=== PATIENT | male | born 1950 | race Caucasian/White ===

== ENCOUNTER 2016-07-16 09:41 | Inpatient (IN) | payer BC, OTHER ==
--- NOTE | ~2016-07-16 | DS ---
Discharge Summary [facility] [address] [place]. [address] NAME: HEAVENLY IGLESIAS : 54 STATUS : ADM Hilda PAT#: [id number] AGE: 66 ADM/REG DATE : 07/16/16 MR#: [id number] REPORT SERV DATE: 07/18/16 DICTATED BY: LILIAN JIN DATE: 07/17/16 REPORT STATUS : Draft TRANSCRIBED BY: MODL DATE: 07/17/16 ADMISSION DATE: 07/16/2016 DISCHARGE DATE: 07/17/2016 Date of admission was initially to [facility] on 07/15/2016, then was transferred here yesterday for heart cath. DISCHARGE DIAGNOSES: Epigastric abdominal pain, nausea intermittent, likely atypical chest pain, hypertroponinemia. RISK FACTORS: Hypertension, known history of subarachnoid hemorrhage due to hypertensive emergency, known history of epilepsy as a result, depression, comorbid generalized anxiety disorder, obesity, CAD, hyperlipidemia. HOSPITAL COURSE: The patient is a 66-year-old unfortunate male, came in with nausea, epigastric discomfort, hypertroponinemia. Lipase mildly elevated 362. Troponin 0.15. Cardiology was consulted given risk factors. Dr. Livingston sent him here to [facility]. The patient had a heart cath. Did not have any flow-limiting coronary artery disease, however, seen to have EF of 20%. Findings consistent with takotsubo's stress cardiomyopathy. As a result of recently losing his less than one month ago, the patient deemed to have acute stress disorder. As a result, Psychiatry saw the patient this morning and acute stress disorder following of . Continue therapy with Dr. Pierre. Consider joining a grief support group through [employer] . Psychiatry signed off. The patient wants to be discharged very anxiously. We will get an echo for further support. Stress cardiomyopathy. DISCHARGE MEDICATIONS: Aspirin 81 p.o. daily, Lipitor 40 p.o. daily, carvedilol 12.5 p.o. b.i.d., Plavix 75 p.o. daily, lisinopril 20 p.o. daily, Dilantin 300 p.o. b.i.d., Zoloft 200 p.o. at bedtime, Aldactone 25 p.o. at bedtime. I will also give Zofran 4 mg p.o. every six hours p.r.n. nausea. I had a CT abdomen and pelvis done regarding his abdominal pain. No intra-abdominal anatomic pathology to correlate with epigastric pain more likely due to his hypertroponinemia, type 2 demand ischemia, . All questions were answered. It took well over 30 minutes to do. DISCHARGE DIAGNOSES: See prior discharge summary. CONSULTS: Interventional Cardiology and Cardiology. PROCEDURES: Heart catheterization. WST/MODL Discharge Summary [address] [place]. [address] NAME: HEAVENLY IGLESIAS : 54 STATUS : ADM Hilda PAT#: [id number] AGE: 66 ADM/REG DATE : 07/16/16 MR#: [id number] REPORT SERV DATE: 07/18/16 DICTATED BY: LILIAN JIN DATE: 07/17/16 REPORT STATUS : Draft TRANSCRIBED BY: AZAEL DATE: 07/17/16 Lilian Jin DO / [id number] CC: Gordo Carter M.D.
--- NOTE | ~2016-07-16 | DS ---
Discharge Summary [facility] [address] [place]. [address] NAME: HEAVENLY IGLESIAS : 54 STATUS : DIS IN PAT#: [id number] AGE: 66 ADM/REG DATE : 07/16/16 MR#: [id number] REPORT SERV DATE: 07/19/16 DICTATED BY: LILIAN JIN DATE: 07/18/16 REPORT STATUS : Draft TRANSCRIBED BY: MODL DATE: 07/18/16 ADMISSION DATE: 07/16/2016 DISCHARGE DATE: 07/18/2016 ADDENDUM: To my discharge summary from yesterday. The patient unfortunately was found by echo prior to discharge to have a large 3.2 x 2 cm apical thrombus. The patient was very anxious to want to be discharged prior to echo. I convinced the patient to get an echo and as a result, noted EF of 25%. Dilated LV global hypocontractility, moderate diastolic dysfunction, mildly enlarged right ventricle, moderately decreased systolic function, mild pulmonary hypertension, mild MR, mild-to- moderate TR. Made decision to anticoagulate; however, the patient likely needs VTE treatment dosing of Eliquis 10 mg p.o. b.i.d. for seven days, then 5 mg p.o. b.i.d. thereafter. Hemoglobin stable, 14 at this time. As a result, he does not have any flow- limiting coronary artery disease, does not need Plavix. As a result, we will just use discharge meds as update of Eliquis 10 mg p.o. b.i.d. for seven days, then 5 mg p.o. b.i.d.; aspirin 81 p.o. daily; as well as Lipitor 40 p.o. daily; as well as carvedilol 12.5 p.o. b.i.d.; as well as lisinopril 20 p.o. daily; as well as Dilantin 300 p.o. b.i.d.; Zoloft 200 p.o. daily; Aldactone 25 p.o. daily; Ativan 0.5 p.o. b.i.d. p.r.n. Consults and record of discharge summary, see prior discharge summary done just yesterday. All questions were answered. Took over 30 minutes to do. WST/AZAEL Lilian Jin DO / [id number] CC: DO Gordo Mtz M.D.
--- NOTE | ~2016-07-16 | DS ---
Discharge Summary [facility] [id number] [place]. [address] NAME: HEAVENLY IGLESIAS : 54 STATUS : DIS IN PAT#: [id number] AGE: 66 ADM/REG DATE : 07/16/16 MR#: [id number] REPORT SERV DATE: 07/19/16 DICTATED BY: LILIAN JIN DATE: 07/18/16 REPORT STATUS : Draft TRANSCRIBED BY: MODL DATE: 07/18/16 ADMISSION DATE: 07/16/2016 DISCHARGE DATE: 07/18/2016 ADDENDUM: The patient does not want Lovenox fpc. Is interested in Coumadin at this time. As a result, Lovenox bridge 1.5 mg/kg subcu daily until INR is 2 to 3 via Coumadin 5 mg p.o. daily. Educated on Coumadin diet. Then, we will have Home Health get an INR check in five days, INR 2 to 3. WST/AZAEL Lilian Jin DO / [id number] CC: DO Gordo Mtz M.D.
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
--- NOTE | ~2016-07-16 | DS ---
Discharge Summary [facility] [address] [place] [address] NAME: HEAVENLY IGLESIAS : 54 STATUS : DIS IN PAT#: [id number] AGE: 66 ADM/REG DATE : 07/16/16 MR#: [id number] REPORT SERV DATE: 07/19/16 DICTATED BY: LILIAN ADAMS DATE: 07/18/16 REPORT STATUS : Draft TRANSCRIBED BY: MODL DATE: 07/18/16 ADMISSION DATE: 07/16/2016 DISCHARGE DATE: 07/18/2016 ADDENDUM: Unfortunately, there is unfortunate side effect of decreased efficacy of Eliquis or any Novel oral anticoagulant in the setting of being on Dilantin. As a result, we will need to be on Lovenox full dose at 1.5 mg/kg subcu daily until patient can follow up with his outpatient neurologist to hopefully get supplanted on better antiepileptic medication to possibly then pursue Novel oral anticoagulant or just continue with Lovenox and bridge with Coumadin as the patient is going to be compliant with INR checks. Likely, we will need to repeat echo in three months to ensure resolution of the intracardiac thrombus. All questions were answered. It took well over 30 minutes to do. IAN/AZAEL Lilian Adams DO / [id number]
[~2016-07-16 09:41] MED LIST: ADVIL PO; ASAB PO; ATV.5 PO; AUG875 PO; BENICAR HCT1 TA2 PO; COREG12 PO; D100 PO; DEMA20 PO; HYDROMET1 ML PO; KLOR-CON M2020 MEQ PO; LIPITOR40 PO; NITROGLYCERIN PATCH TOP; NITROII20C TOP; NORV5 PO; OTC ALLERGY MED PO; PLAVIX PO; PRIN2.5 PO; PRIN5 PO; PROAIR HFA INH; SINGULAIR1 PO; SPIRO25 PO; TAZTIA XT PO; TRAN200 PO; TRAZ100 PO; ZOL100 PO; ZOL50 PO
[2016-07-17 03:46] LABS: BASOPHILS 0.2 %; BASOPHILS ABSOLUTE 0.02 10/3/uL (0.0-0.16); EOSINOPHILS 5.2 %; EOSINOPHILS ABSOLUTE 0.46 10/3/uL (0.0-0.53); HEMOGLOBIN 14.1 g/dL (13.6-17.8); IMMATURE GRANULOCYTES 0.2 %; IMMATURE GRANULOCYTES ABSOLUTE 0.02 10/3/uL (0.0-0.11); LYMPHOCYTES 12.8 %; LYMPHOCYTES ABSOLUTE 1.12 10/3/uL (0.67-4.30); MEAN CORPUS HGB CONC 32.8 g/dL (32.0-36.0); MEAN CORPUSCULAR HEMOGLOB 28.8 pg (26.0-34.0); MEAN CORPUSCULAR VOLUME 87.8 fL (80-100); MEAN PLATELET VOLUME 9.5 fL (9.2-13.0); MONOCYTES 11.3 %; MONOCYTES ABSOLUTE 0.99 10/3/uL (0.21-1.20); NEUTROPHILS 70.3 %; NEUTROPHILS ABSOLUTE 6.17 10/3/uL (2.02-8.40); PLATELET COUNT 295 10/3/uL (150-400); RBC DISTRIBUTION WIDTH 15.5 % (12.0-16.0); WHITE BLOOD CELLS 8.8 10/3/uL (4.5-10.5)
[2016-07-17 03:47] LABS: MANUAL DIFF NO %
[2016-07-17 03:59] LABS: BUN (BLOOD UREA NITROGEN) 14 MG/DL (6-23); CALCIUM, SERUM 8.5 MG/DL (8.5-10.4); CHLORIDE, SERUM 103 MMOL/L (96-112); CO2 (CARBON DIOXIDE) 28 MMOL/L (24-34); CREATININE 0.99 MG/DL (0.70-1.30); GFR AFRICAN AMERICAN 93 ML/MIN (>=60); GFR NON AFRICAN AMERICAN 80 ML/MIN (>=60); GLUCOSE, SERUM 96 MG/DL (60-99); POTASSIUM, SERUM 3.5 MMOL/L (3.5-5.3); SODIUM, SERUM 140 MMOL/L (135-148)
[2016-07-18 10:09] LABS: BASOPHILS 0.2 %; BASOPHILS ABSOLUTE 0.02 10/3/uL (0.0-0.16); EOSINOPHILS 5.6 %; EOSINOPHILS ABSOLUTE 0.49 10/3/uL (0.0-0.53); HEMATOCRIT 44.8 % (40.0-51.0); HEMOGLOBIN 14.5 g/dL (13.6-17.8); IMMATURE GRANULOCYTES 0.2 %; IMMATURE GRANULOCYTES ABSOLUTE 0.02 10/3/uL (0.0-0.11); LYMPHOCYTES 9.4 %; LYMPHOCYTES ABSOLUTE 0.82 10/3/uL (0.67-4.30); MEAN CORPUS HGB CONC 32.4 g/dL (32.0-36.0); MEAN CORPUSCULAR HEMOGLOB 28.4 pg (26.0-34.0); MEAN CORPUSCULAR VOLUME 87.7 fL (80-100); MEAN PLATELET VOLUME 9.8 fL (9.2-13.0); MONOCYTES 12.9 %; MONOCYTES ABSOLUTE 1.13 10/3/uL (0.21-1.20); NEUTROPHILS 71.7 %; NEUTROPHILS ABSOLUTE 6.26 10/3/uL (2.02-8.40); PLATELET COUNT 271 10/3/uL (150-400); RBC DISTRIBUTION WIDTH 15.4 % (12.0-16.0); RED CELL COUNT 5.11 10/6/uL (4.7-6.1); WHITE BLOOD CELLS 8.7 10/3/uL (4.5-10.5)
[2016-07-18 10:10] LABS: MANUAL DIFF NO %
[2016-07-18 10:20] LABS: BUN (BLOOD UREA NITROGEN) 10 MG/DL (6-23); CALCIUM, SERUM 8.5 MG/DL (8.5-10.4); CHLORIDE, SERUM 101 MMOL/L (96-112); CO2 (CARBON DIOXIDE) 30 MMOL/L (24-34); CREATININE 0.96 MG/DL (0.70-1.30); GFR AFRICAN AMERICAN 96 ML/MIN (>=60); GFR NON AFRICAN AMERICAN 83 ML/MIN (>=60); GLUCOSE, SERUM 92 MG/DL (60-99); POTASSIUM, SERUM 3.9 MMOL/L (3.5-5.3); SODIUM, SERUM 138 MMOL/L (135-148)
[2016-07-18] MEDS ORDERED: C5 PO (15:07)
[2016-07-18] MEDS ORDERED: ATV.5 PO (15:07)
[2016-07-18] MEDS ORDERED: LIPITOR40 PO (15:08)
[2016-07-18] MEDS ORDERED: HALF81 PO (15:08)
[2016-07-18] MEDS ORDERED: COREG12 PO (15:09)
[2016-07-18] MEDS ORDERED: ZOFRAN4 PO (15:09)
[2016-07-18] MEDS ORDERED: PRIN20 PO (15:09)
[2016-07-18] MEDS ORDERED: LOVENOX150 SC (15:10)
[2016-07-27] MEDS ORDERED: COREG12 PO (11:41)
[2016-07-27] MEDS ORDERED: NEUR100 PO (11:43)
[2016-07-27] MEDS ORDERED: KLOR-CON M1010 MEQ PO (11:45)
[2016-07-27] MEDS ORDERED: NORV5 PO (11:49)
[2016-11-08] MEDS ORDERED: L20 PO (13:17)
[2016-11-08] MEDS ORDERED: PRIN2.5 PO (13:18)
[2016-11-08] MEDS ORDERED: NITROII20C TOP (13:52)
[2016-11-21] MEDS ORDERED: PLAVIX PO (02:06)
[2016-11-21] MEDS ORDERED: BUSPAR15 M1 PO (02:08)
[2016-11-21] MEDS ORDERED: EFFEX75 PO (02:09)
== END 2016-07-18 16:52 | disposition home or self-care (01) | DRG 287 ==
LOC: CORLMH 09:41 → SSU1 10:44 → 1SO 07-17 13:21
PROVIDERS: Internal Medicine Cardiovascular Disease; Nurse Practitioner Family
PROC: B2111ZZ Fluoroscopy of Multiple Coronary Arteries using Low Osmolar Contrast (ICD-10-PCS; principal; 2016-07-16)
PROC: B2151ZZ Fluoroscopy of Left Heart using Low Osmolar Contrast (ICD-10-PCS; 2016-07-16)
PROC: 4A023N7 Measurement of Cardiac Sampling and Pressure, Left Heart, Percutaneous Approach (ICD-10-PCS; 2016-07-16)
DX: I11.9 Hypertensive heart disease without heart failure (principal); I24.8 Other forms of acute ischemic heart disease; I27.2 Other secondary pulmonary hypertension; I51.3 Intracardiac thrombosis, not elsewhere classified; F43.29 Adjustment disorder with other symptoms; I48.0 Paroxysmal atrial fibrillation; I34.0 Nonrheumatic mitral (valve) insufficiency; F40.240 Claustrophobia; F32.9 Major depressive disorder, single episode, unspecified; G47.33 Obstructive sleep apnea (adult) (pediatric); E78.5 Hyperlipidemia, unspecified; F41.1 Generalized anxiety disorder; Z79.82 Long term (current) use of aspirin; Z79.02 Long term (current) use of antithrombotics/antiplatelets; Z79.899 Other long term (current) drug therapy; Z86.73 Personal history of transient ischemic attack (TIA), and cerebral infarction without residual deficits
CPT/HCPCS: 74176; 80048; 85025; 93458; 99152; 99153; A9270-GY; C1769; C1887; C1894; C8929; J2250; J2405; J3010; Q9957; Q9967